=== PATIENT | male | born 1990 | race African-American/Black ===

== ENCOUNTER 2021-03-23 17:33 | Emergency (ER) | payer OTHER ==
[~2021-03-23 17:33] MED LIST: FLEXERIL PO; NORCO 5-325 TA1 EACH PO
== END 2021-03-23 19:04 | disposition home or self-care (01) ==
LOC: ER 17:33
DX: Z01.84 Encounter for antibody response examination (principal); Z53.21 Procedure and treatment not carried out due to patient leaving prior to being seen by health care provider

== ENCOUNTER 2021-03-28 13:30 | Emergency (ER) | payer OTHER ==
[~2021-03-28] VITALS: Ht 175.3 cm; Wt 98.9 kg
[2021-03-28 16:06] VITALS: BP 132/71
== END 2021-03-28 16:06 | disposition home or self-care (01) ==
LOC: ER 13:30
PROVIDERS: Emergency Medicine
DX: U07.1 COVID-19 (principal); Z98.890 Other specified postprocedural states